=== PATIENT | female | born 1990 ===

== ENCOUNTER → 2017-04-27 | Outpatient (CLI) | payer OTHER ==
[2017-04-27 09:45] LABS: HEMOGLOBIN A1C 6.3 % (4.5-5.6)
[2017-04-27 10:04] LABS: ALT/SGPT 27 U/L (12-78); BLOOD UREA NITROGEN 11 mg/dl (7-18); CARBON DIOXIDE 26 mmol/L (21-32); CREATININE 0.68 mg/dl (0.60-1.20); GLUCOSE 179 mg/dl (70-99); POTASSIUM 3.8 mmol/L (3.5-5.1); SODIUM 137 mmol/L (136-145)
[2017-04-27 10:14] LABS: ALKALINE PHOSPHATASE 85 U/L (45-117); AST/SGOT 16 U/L (15-37); TOTAL PROTEIN 7.8 gm/dl (6.4-8.2)
[2017-04-27 10:38] LABS: CORTISOL AM*DRAW BETWEEN 7-9AM 17.27 mcg/dl (4.30-22.40)
== END | disposition home or self-care (01) ==
LOC: C.LAB1850 08:28
PROVIDERS: ATTEND Internal Medicine Endocrinology, Diabetes & Metabolism
DX: E10.9 Type 1 diabetes mellitus without complications (principal)